=== PATIENT | female | born 1970 | race Caucasian/White ===

== ENCOUNTER 2021-03-09 04:55 | Day surgery (SDC) | payer BC, OTHER ==
[2021-03-08 11:35] VITALS: BMI 24.9
[2021-03-09 12:27] VITALS: TEMP 97.1
[2021-03-09 13:03] VITALS: BP 104/62; PULSE 63
== END 2021-03-09 13:11 | disposition home or self-care (01) ==
LOC: JASU-ENDO 04:55
PROVIDERS: ATTEND Internal Medicine Gastroenterology
PROC: 0DBK8ZX Excision of Ascending Colon, Via Natural or Artificial Opening Endoscopic, Diagnostic (ICD-10-PCS; principal; 2021-03-09 11:00)
DX: Z12.11 Encounter for screening for malignant neoplasm of colon (principal); D12.2 Benign neoplasm of ascending colon; K92.1 Melena; K64.4 Residual hemorrhoidal skin tags
CPT/HCPCS: 81025; 88305-TC